=== PATIENT | male | born 1940 | race Two or more races ===

== ENCOUNTER 2017-09-26 10:12 | Outpatient (CLI) | payer OTHER ==
[~2017-09-26 10:12] MED LIST: CILOSTAZOL50 MG; Hyzaar 100-25 Tablet PO; JANUMET XR 50-1 EAC1; METFORMIN HCL500 MG; NORVASC 10 MG TAB PO; PLAVIX75 MG; PLAVIX75 MG PO; PREVACID30 MG; PROSCAR5 MG; TAMS0.4C; VASOTEC10 MG; ZOCOR20 MG
== END 2017-09-26 10:31 | disposition home or self-care (01) ==
LOC: LAB 10:12
DX: Z93.3 Colostomy status (principal); K63.0 Abscess of intestine; I25.810 Atherosclerosis of coronary artery bypass graft(s) without angina pectoris; I21.3 ST elevation (STEMI) myocardial infarction of unspecified site; G89.4 Chronic pain syndrome; K29.50 Unspecified chronic gastritis without bleeding; Z79.4 Long term (current) use of insulin; E78.4 Other hyperlipidemia; E11.42 Type 2 diabetes mellitus with diabetic polyneuropathy

== ENCOUNTER 2017-12-24 10:50 | Outpatient (CLI) | payer OTHER | END 2017-12-24 10:51 | disposition home or self-care (01) | LOC: LAB 10:50 | DX: K63.2 Fistula of intestine (principal); I25.810 Atherosclerosis of coronary artery bypass graft(s) without angina pectoris; I21.3 ST elevation (STEMI) myocardial infarction of unspecified site; G89.4 Chronic pain syndrome; K29.50 Unspecified chronic gastritis without bleeding; Z79.4 Long term (current) use of insulin; E78.4 Other hyperlipidemia; E11.42 Type 2 diabetes mellitus with diabetic polyneuropathy; R82.79 Other abnormal findings on microbiological examination of urine ==

== ENCOUNTER → 2018-02-19 09:50 | Outpatient (CLI) | payer OTHER | END | disposition home or self-care (01) | LOC: LAB 09:50 | DX: E11.65 Type 2 diabetes mellitus with hyperglycemia (principal) ==